=== PATIENT | male | born 1970 | race Caucasian/White ===

== ENCOUNTER 2021-07-24 10:44 | Emergency (ER) | payer BC ==
[~2021-07-24] VITALS: Ht 185.4 cm; Wt 89.4 kg
[2021-07-24] MEDS ORDERED: LAMO200T2 PO (11:08)
[2021-07-24] MEDS ORDERED: LORA-258 PO (11:08)
[2021-07-24] MEDS ORDERED: LITH600C PO (11:08)
[2021-07-24] MEDS ORDERED: LEVOTHYROXIN (11:08)
[2021-07-24] MEDS ORDERED: EFFEXOR (11:08)
[2021-07-24] MEDS ORDERED: ACETAMINOPHEN 325 MG TABLET ONE (11:11)
[2021-07-24] MEDS ORDERED: LIDOCAINE 5% PATCH TD ONE ×2 (11:11→11:15)
[2021-07-24] MEDS ORDERED: BACLOFEN 10 MG TABLET ONE (11:13)
[2021-07-24] MEDS ORDERED: DEXAMETHASONE SOD PHOSPHATE 4 MG INJ IM ONE (11:15)
[2021-07-24] MEDS ORDERED: ACETAMINOPHEN 325 MG TABLET PO ONE (11:15)
[2021-07-24] MEDS ORDERED: DEXAMETHASONE SOD PHOSPHATE 10 MG INJ ONE (11:15)
[2021-07-24] MEDS ORDERED: BACLOFEN 10 MG TABLET PO ONE (11:15)
[2021-07-24] MEDS ORDERED: BACL10TA PO (11:34)
[2021-07-24] MEDS ORDERED: ACET-2154 PO (11:34)
[2021-07-24] MEDS ORDERED: IBUP-1955 PO (11:34)
[2021-07-24] MEDS ORDERED: LIDO30AD10 TP (11:34)
--- NOTE | 2021-07-24 12:05 | NUR ---
Patient discharged to home in stable condition. Written and verbal after care instructions given. Patient verbalizes understanding of instructions. Stressed follow up or return to ER for worsening s/s.
== END 2021-07-24 12:05 | disposition home or self-care (01) ==
LOC: ER 10:44
DX: M54.42 Lumbago with sciatica, left side (principal); G89.29 Other chronic pain; F32.A Depression, unspecified; F41.9 Anxiety disorder, unspecified; E03.9 Hypothyroidism, unspecified; Z79.890 Hormone replacement therapy; Z79.899 Other long term (current) drug therapy
CPT/HCPCS: 96372; 99284; J1100; A4663

== ENCOUNTER 2022-07-02 12:37 | Emergency (ER) | payer BC ==
[~2022-07-02] VITALS: Ht 185.4 cm; Wt 86.2 kg
[~2022-07-02 12:37] MED LIST: ACET-2154 PO; BACL10TA PO; EFFEXOR; IBUP-1955 PO; LAMO200T2 PO; LEVOTHYROXIN PO; LIDO30AD10 TP; LITH600C PO; LORA-258 PO
[2022-07-02] MEDS ORDERED: CLON0.5T4 PO (13:02)
--- NOTE | 2022-07-02 13:33 | NUR ---
AFTER TRIAGE, PT DECIDED TO WALK OUT OF ER WITHOUT SEEING MD.
== END 2022-07-02 13:33 | disposition left against medical advice (07) ==
LOC: ER 12:37
DX: Z53.21 Procedure and treatment not carried out due to patient leaving prior to being seen by health care provider (principal)
CPT/HCPCS: A4663